=== PATIENT | female | born 1995 | race Caucasian/White ===

== ENCOUNTER 2017-01-21 07:51 | Emergency (ER) | payer BC ==
[~2017-01-21] VITALS: Ht 160 cm; Wt 43.1 kg
[~2017-01-21 07:51] MED LIST: CYCL-331 PO; HYDR-79 PO; IBUP200T58 PO; TEST200V3 IM
[2017-01-21] MEDS ORDERED: ONDANSETRON PF 4 MG/2 ML VIAL. IV ONE (08:45)
[2017-01-21] MEDS ORDERED: IV NORMAL SALINE 1,000ML 1,000 ML IV ONE (08:45)
[2017-01-21] MEDS ORDERED: IPRATRPIUM/ALBUTEROL 0.5/2.5MG 3 ML NEBU. NEB ONE (08:45)
--- NOTE | 2017-01-21 08:51 | RAD ---
Chest, 2 views, 01/21/2017: History: Cough, nausea The heart size is normal. The lungs are clear. There is no evidence of pleural fluid. IMPRESSION: No acute cardiopulmonary abnormality is detected.
[2017-01-21 09:00] LABS: BASO # 0.1 x10^3/uL (0.0-0.2); BASO % 1 % (0-3); EOS # 0.1 x10^3/uL (0.0-0.7); EOS % 1 % (0-3); HEMOGLOBIN 17.8 g/dL (12.0-15.5); LYMPH # 0.6 x10^3/uL (1.0-4.8); LYMPH % 5 % (24-48); MEAN CORPUSCULAR HEMOGLOBIN 33 pg (25-35); MEAN CORPUSCULAR HGB CONC 34 g/dL (31-37); MEAN CORPUSCULAR VOLUME 96 fL (79-100); MONO # 0.4 x10^3/uL (0.0-1.1); MONO % 3 % (0-9); NEUT # 11.2 x10^3uL (1.8-7.7); NEUT % 91 % (31-73); PLATELET COUNT 245 x10^3/uL (140-400); RED BLOOD COUNT 5.41 x10^6/uL (3.50-5.40); RED CELL DISTRIBUTION WIDTH 12.4 % (11.5-14.5); WHITE BLOOD COUNT 12.3 x10^3/uL (4.0-11.0)
[2017-01-21 09:16] LABS: ALBUMIN 4.4 g/dL (3.4-5.0); ALBUMIN/GLOBULIN RATIO 1.1 (1.0-1.7); CALCIUM 9.5 mg/dL (8.5-10.1); POTASSIUM 4.1 mmol/L (3.5-5.1); TOTAL BILIRUBIN 0.7 mg/dL (0.2-1.0); TOTAL PROTEIN 8.5 g/dL (6.4-8.2)
[2017-01-21 09:48] LABS: BILIRUBIN,URINE NEG (NEG); CLARITY,URINE CLOUDY; COLOR,URINE YELLOW; GLUCOSE,URINE NEG (NEG)
[2017-01-21 09:49] LABS: BACTERIA,URINE MOD /HPF (0-FEW); NITRITE,URINE NEG (NEG); SQUAMOUS EPITHELIAL CELL,UR MOD /LPF; UROBILINOGEN,URINE 1 mg/dL (0.2 mg/dL)
[2017-01-21 09:54] LABS: INFLUENZA A PATIENT NEGATIVE (NEGATIVE); INFLUENZA B PATIENT NEGATIVE (NEGATIVE)
--- NOTE | 2017-01-21 10:05 | PHYS DOC ---
Past History Past Medical History: No Pertinent History, Other Past Surgical History: No Surgical History Alcohol Use: Occasionally Drug Use: Marijuana Adult General Chief Complaint Chief Complaint: FLU SYMPTOM HPI HPI Patient is a 21 year old female who presents with illness. Patient reports 2 day history of fatigue, weakness, subjective fever, nausea, vomiting x 3, generalized abdominal pain, productive cough. Denies chest pain, shortness of breath, hematemesis, diarrhea, dysuria/hematuria. No known ill contacts. Previously healthy. Review of Systems Review of Systems Constitutional: Reports fever Eyes: Denies drainage HENT: Denies nasal congestion or sore throat Respiratory: Reports cough & shortness of breath Cardiovascular: Denies chest pain or edema GI: Reports abdominal pain, nausea, vomiting, denies diarrhea : Denies dysuria or hematuria Musculoskeletal: Denies back pain or joint pain Integument: Denies rash or skin lesions Neurologic: Denies headache, focal weakness or sensory changes Current Medications Current Medications Current Medications Medications (Trade) Dose Ordered Sig/Pako Start Time Stop Time Status Last Admin Dose Admin Albuterol/ Ipratropium (Duoneb) 3 ml 1X ONCE 01/21/17 08:45 01/21/17 08:46 DC 01/21/17 08:45 3 ML Ondansetron HCl (Zofran) 4 mg 1X ONCE 01/21/17 08:45 01/21/17 08:46 DC 01/21/17 09:45 4 MG Sodium Chloride 1,000 ml @ 1,000 mls/hr 1X ONCE 01/21/17 08:45 01/21/17 09:44 DC 01/21/17 09:43 1,000 MLS/HR Allergies Allergies Allergies Coded Allergies Type Severity Reaction Last Updated Verified No Known Drug Allergies 06/22/16 No Physical Exam Physical Exam Constitutional: Well developed, well nourished, no acute distress, non-toxic appearance. HENT: Normocephalic, atraumatic, bilateral external ears normal, oropharynx moist, no tonsillar enlargement or exudate, nose normal. Eyes: conjunctiva normal, no discharge. Neck: supple, no stridor. no meningismus Cardiovascular: tachycardic, regular, no murmurs, no edema. Lungs & Thorax: LCTAB, few expiratory wheezes, no respiratory distress. Abdomen: soft, mild diffuse tenderness without rebound/guarding, no masses or pulsatile masses, nondistended. Skin: Warm, dry, no erythema, no rash. Back: No CVA tenderness. Extremities: No tenderness, no edema. Neurologic: Alert and oriented X 3, no focal deficits noted. Psychologic: Affect normal, judgement normal, mood normal. Current Patient Data Vital Signs Vital Signs Date Time Temp Pulse Resp B/P (MAP) Pulse Ox O2 Delivery O2 Flow Rate FiO2 01/21/17 09:29 95 Room Air Lab Results Laboratory Tests Test 01/21/17 08:15 01/21/17 08:47 01/21/17 09:25 01/21/17 09:33 Urine Collection Type Void Urine Color Yellow Urine Clarity Cloudy Urine pH 6.5 Urine Specific [place] 1.020 Urine Protein 100 mg/dl (NEG-TRACE) Urine Glucose (UA) Neg mg/dL (NEG) Urine Ketones (Stick) >=160 mg/dL (NEG) Urine Blood Mod (NEG) Urine Nitrite Neg (NEG) Urine Bilirubin Neg (NEG) Urine Urobilinogen Dipstick 1 mg/dL (0.2 mg/dL) Urine Leukocyte Esterase Trace (NEG) Urine RBC 11-20 /HPF (0-2) Urine WBC 11-20 /HPF (0-4) Urine Squamous Epithelial Cells Mod /LPF Urine Bacteria Mod /HPF (0-FEW) Urine Mucus Mod /LPF White Blood Count 12.3 x10^3/uL (4.0-11.0) H Red Blood Count 5.41 x10^6/uL (3.50-5.40) H Hemoglobin 17.8 g/dL (12.0-15.5) H Hematocrit 52.0 % (36.0-47.0) H Mean Corpuscular Volume 96 fL (79-100) Mean Corpuscular Hemoglobin 33 pg (25-35) Mean Corpuscular Hemoglobin Concent 34 g/dL (31-37) Red Cell Distribution Width 12.4 % (11.5-14.5) Platelet Count 245 x10^3/uL (140-400) Neutrophils (%) (Auto) 91 % (31-73) H Lymphocytes (%) (Auto) 5 % (24-48) L Monocytes (%) (Auto) 3 % (0-9) Eosinophils (%) (Auto) 1 % (0-3) Basophils (%) (Auto) 1 % (0-3) Neutrophils # (Auto) 11.2 x10^3uL (1.8-7.7) H Lymphocytes # (Auto) 0.6 x10^3/uL (1.0-4.8) L Monocytes # (Auto) 0.4 x10^3/uL (0.0-1.1) Eosinophils # (Auto) 0.1 x10^3/uL (0.0-0.7) Basophils # (Auto) 0.1 x10^3/uL (0.0-0.2) Sodium Level 141 mmol/L (136-145) Potassium Level 4.1 mmol/L (3.5-5.1) Chloride Level 106 mmol/L (98-107) Carbon Dioxide Level 27 mmol/L (21-32) Anion Gap 8 (6-14) Blood Urea Nitrogen 9 mg/dL (7-20) Creatinine 1.0 mg/dL (0.6-1.0) Estimated GFR (Cockcroft-Gault) 70.0 BUN/Creatinine Ratio 9 (6-20) Glucose Level 98 mg/dL (70-99) Calcium Level 9.5 mg/dL (8.5-10.1) Total Bilirubin 0.7 mg/dL (0.2-1.0) Aspartate Amino Transferase (AST) 60 U/L (15-37) H Alanine Aminotransferase (ALT) 77 U/L (14-59) H Alkaline Phosphatase 113 U/L (46-116) Total Protein 8.5 g/dL (6.4-8.2) H Albumin 4.4 g/dL (3.4-5.0) Albumin/Globulin Ratio 1.1 (1.0-1.7) Influenza Type A (Rapid) Negative (NEGATIVE) Influenza Type B (Rapid) Negative (NEGATIVE) POC Urine HCG, Qualitative hcg negative (Negative) EKG EKG [] Radiology/Procedures Radiology/Procedures PROCEDURE: CHEST PA & LATERAL Chest, 2 views, 01/21/2017: History: Cough, nausea The heart size is normal. The lungs are clear. There is no evidence of pleural fluid. IMPRESSION: No acute cardiopulmonary abnormality is detected. DICTATED AND SIGNED BY: LISA CUETO MD DATE: 01/21/17 0848 PROCEDURE: ABDOMEN LTD Right upper quadrant abdominal ultrasound, 01/21/2017: History: Abdominal pain and vomiting, elevated liver enzymes The gallbladder is within normal limits in size. There is no sonographic evidence of cholelithiasis. No bile duct dilatation is evident. There is no evidence of a hepatic mass. The visualized portions of the pancreas and right kidney are unremarkable. IMPRESSION: No significant gallbladder abnormality is detected. DICTATED AND SIGNED BY: LISA CUETO MD DATE: 01/21/17 1119[] Course & Med Decision Making Course & Med Decision Making Pertinent Labs and Imaging studies reviewed. (See chart for details) The patient presents with illness. Tachycardic 110s but afebrile here. Gave IV fluids, zofran, duoneb. Obtained labs, CXR, UA. Found to have leukocytosis , transaminitis, UTI. RUQ US negative for gallbladder pathology. Gave IV rocephin for UTI/pyelonephritis. Heart rate improved to 92 at rest. Patient felt better after treatment here & requested discharge home. Recommend rest, hydration, zofran for nausea, tylenol/ibuprofen for pain or fever, cipro for pyelonephritis, proair inhaler PRN for cough/wheezing. Follow up with primary care in 2-3 days, gave family medicine clinic list as she does not have a PCP. Come back for high fever, severe pain, uncontrolled vomiting, any otherwise worsening condition. Discharged home in stable & improved condition. [] Dragon Disclaimer Dragon Disclaimer This chart was dictated in whole or in part using Voice Recognition software in a busy, high-work load, and often noisy Emergency Department environment. It may contain unintended and wholly unrecognized errors or omissions. Departure Departure: Impression: Primary Impression: Pyelonephritis Additional Impressions: Tachycardia Transaminitis Disposition: HOME, SELF-CARE Condition: STABLE Referrals: PCP,NO (PCP) Patient Instructions: Pyelonephritis, Adult, [id number] Additional Instructions: You were seen in the emergency department today & we found that you have kidney infection. Please rest, drink fluids, take tylenol or ibuprofen for pain or fever. Take prescribed antibiotic. Use inhaler as needed for cough/wheezing. Follow up with a primary care doctor in 2-3 days. Come back for high fever, severe pain, uncontrolled vomiting, any otherwise worsening condition. Scripts Albuterol Sulfate (PROAIR HFA INHALER) 8.5 Gm Hfa.aer.ad 1 PUFF INH PRN Q6HRS Y for SHORTNESS OF BREATH, #1 INHALER 0 Refills Prov: YOVANI PIERSON MD 01/21/17 Ondansetron (ZOFRAN ODT) 4 Mg Tab.rapdis 1 TAB SL Q8HRS, #10 TAB Prov: YOVANI PIERSON MD 01/21/17 Ciprofloxacin Hcl (CIPROFLOXACIN HCL) 500 Mg Tablet 1 TAB PO BID, #14 TAB Prov: YOVANI PIERSON MD 01/21/17 Problem Qualifiers YOVANI PIERSON MD Jan 21, 2017 10:05
[2017-01-21] MEDS ORDERED: cefTRIAXone SODIUM 1 GM VIAL IV ONE (10:26)
[2017-01-21] MEDS ORDERED: IV NORMAL SALINE 50ML 50 ML ONE (10:26)
--- NOTE | 2017-01-21 11:24 | RAD ---
Right upper quadrant abdominal ultrasound, 01/21/2017: History: Abdominal pain and vomiting, elevated liver enzymes The gallbladder is within normal limits in size. There is no sonographic evidence of cholelithiasis. No bile duct dilatation is evident. There is no evidence of a hepatic mass. The visualized portions of the pancreas and right kidney are unremarkable. IMPRESSION: No significant gallbladder abnormality is detected.
[2017-01-21] MEDS ORDERED: CIPR500T PO (11:32)
[2017-01-21] MEDS ORDERED: ONDA4TAB10 SL (11:32)
[2017-01-21] MEDS ORDERED: ALBU8.5H8 INH (11:32)
[2017-01-21 11:45] VITALS: BP 100/74
== END 2017-01-21 11:45 | disposition home or self-care (01) ==
LOC: ER 07:51
DX: N12 Tubulo-interstitial nephritis, not specified as acute or chronic (principal); R00.0 Tachycardia, unspecified; R74.0 Nonspecific elevation of levels of transaminase and lactic acid dehydrogenase [LDH]
CPT/HCPCS: 36415; 71020; 76705; 80053; 81001; 81025; 85025; 87086; 87804; 94250; 94640; 96361; 96365; 96375; 99285; J0696; J2405; J7620; J7030